=== PATIENT | female | born 1940 | race Asian ===

== ENCOUNTER → 2016-09-18 | Outpatient (CLI) | payer BC, MEDICARE, OTHER ==
[~2016-09-18] MED LIST: ACET-2267 PO; ASP81TEC PO; ASTA4CAP PO; BIOT5CAP9 PO; BUDE9TAB PO; CALC-210 PO; CIPR-225 PO; CLAR-19 PO; COCO1000 PO; CYCL1DRO OU; DILT180C84 PO; DIPH25CA79 PO; HYDR-3730 PO; HYDR200T PO; MELO15TA39 PO; MESA10002 RC; MESA500C PO; METO-333 PO; METO25TA2 PO; METR500T PO; MULT-1029 PO; MULT-35 PO; PANT40TA2 PO; PRD10T PO; TURM500C7 PO; UBID200C16 PO; VALS80TA30 PO; VITA1CAP PO; VITA1TAB17 PO
--- NOTE | 2016-09-18 11:42 | Diagnostic Imaging Report ---
EXAMINATION: DEXA scan. INDICATION: Osteopenia. TECHNIQUE: Bone mineral density estimated based on dual energy radiography over the lumbar spine and femoral necks, was performed. FINDINGS: The lumbar spine T-score is -1.2. T score over the left femoral neck is -2.1 and on the right side is -2. IMPRESSION: Osteopenia. Dictated by: Dictated on workstation # [id number]
== END ==
LOC: RAD 10:53
PROVIDERS: ATTEND Internal Medicine Gastroenterology
DX: M85.89 Other specified disorders of bone density and structure, multiple sites (principal); D64.9 Anemia, unspecified; R79.9 Abnormal finding of blood chemistry, unspecified; K51.919 Ulcerative colitis, unspecified with unspecified complications
CPT/HCPCS: 77080

== ENCOUNTER → 2020-08-24 | Outpatient (CLI) | payer MEDICARE, BC, OTHER ==
[~2020-08-24] MED LIST changes: -CLAR-19 PO; +CLAR-31 PO; -HYDR200T PO; +HYDR200T78 PO; -MESA10002 RC; +MESA10003 RC; -VALS80TA30 PO; +VALS80TA31 PO
--- NOTE | 2020-08-27 13:22 | Diagnostic Imaging Report ---
INDICATION: Routine screening. Comparison is made with prior mammogram 08/07/2011. 2-D and 3-D bilateral screening mammography was performed with CAD. Scattered fibroglandular densities are identified bilaterally. The parenchymal pattern is stable. No mass or malignant appearing microcalcifications are seen. Axillae are unremarkable. IMPRESSION: BI-RADS Category 1 No mammographic features suspicious for malignancy are identified. ACR BI-RADS Category 1: Negative. Result letter will be mailed to the patient. Note: At least 10% of breast cancer is not imaged by mammography. Dictated by: Dictated on workstation # [id number]
== END ==
LOC: RAD 14:45
PROVIDERS: ATTEND Family Medicine
DX: Z12.31 Encounter for screening mammogram for malignant neoplasm of breast (principal)
CPT/HCPCS: 77063; 77067

== ENCOUNTER → 2020-12-03 | Outpatient (CLI) | payer BC, MEDICARE, OTHER | LOC: CARD 09:06 | PROVIDERS: ATTEND Internal Medicine Cardiovascular Disease | DX: I08.3 Combined rheumatic disorders of mitral, aortic and tricuspid valves (principal) | CPT/HCPCS: 93306 ==

== ENCOUNTER 2021-12-22 11:12 | Emergency (ER) | payer BC, MEDICARE, OTHER ==
[~2021-12-22] VITALS: Ht 152.4 cm; Wt 52.1 kg
[2021-12-22] MEDS ORDERED: morphine INJ 10 MG/ML 1ML (SYR OR VIAL) IVP STA (12:53)
[2021-12-22] MEDS ORDERED: cefTRIAXone 2,000 MG in NS (IVPB) 50 ML IV ONE (13:00)
[2021-12-22] MEDS ORDERED: VANCOMYCIN INJECTION 1,000 MG in NS (IVPB) 250 ML IV ONE (13:00)
[2021-12-22 13:03] LABS: BASOPHILS % (AUTO) 0 % (0-10); EOSINOPHILS % (AUTO) 0 % (0-10); HEMATOCRIT 36 % (35-52); LYMPHOCYTES # (AUTO) 1.1 10^3/uL (1.0-4.0); LYMPHOCYTES % (AUTO) 22 % (12-44); MEAN CORPUSCULAR HEMOGLOBIN 30 pg (25-34); MEAN CORPUSCULAR HGB CONC 33 g/dL (32-36); MEAN CORPUSCULAR VOLUME 92 fL (80-99); MEAN PLATELET VOLUME 9.5 fL (9.0-12.2); MONOCYTES # (AUTO) 0.3 10^3/uL (0.0-1.0); MONOCYTES % (AUTO) 6 % (0-12); NEUTROPHILS # (AUTO) 3.7 10^3/uL (1.8-7.8); NEUTROPHILS % (AUTO) 71 % (42-75); PLATELET COUNT 167 10^3/uL (130-400); WHITE BLOOD COUNT 5.1 10^3/uL (4.3-11.0)
[2021-12-22 13:07] LABS: ALBUMIN 3.9 GM/DL (3.2-4.5); POTASSIUM 3.6 MMOL/L (3.6-5.0)
[2021-12-22 13:09] LABS: CALCIUM 8.4 MG/DL (8.5-10.1)
[2021-12-22 13:10] LABS: PROTHROMBIN TIME PATIENT 13.6 SEC (12.2-14.7); TOTAL PROTEIN 7.9 GM/DL (6.4-8.2)
[2021-12-22 13:11] LABS: BILIRUBIN,TOTAL 0.7 MG/DL (0.1-1.0)
[2021-12-22 13:12] LABS: BILIRUBIN,URINE NEGATIVE (NEGATIVE); CLARITY,URINE SL CLOUDY; COLOR,URINE YELLOW; GLUCOSE, URINE (UA) NEGATIVE (NEGATIVE); KETONES,URINE TRACE (NEGATIVE); LEUKOCYTE ESTERASE ,URINE TRACE (NEGATIVE); NITRITE,URINE NEGATIVE (NEGATIVE); PH,URINE 6.5 (5-9); PROTEIN,URINE TRACE (NEGATIVE)
[2021-12-22 13:13] LABS: CREATININE SERUM 0.84 MG/DL (0.60-1.30)
[2021-12-22 13:22] LABS: BACTERIA,URINE TRACE /HPF; RBC,URINE RARE /HPF
[2021-12-22] MEDS ORDERED: IOHEXOL 350 MG/ML 100 ML (OMNIPAQUE 350) VIAL IV ONE (13:30)
[2021-12-22] MEDS ORDERED: HOLD METFORMIN - RECEIVED CONTRAST 20 ML VIAL IV SCH (13:30)
[2021-12-22] MEDS ORDERED: CATHETER FLUSH 10 ML SYR IV PRN (13:30)
[2021-12-22] MEDS ORDERED: NS 100 ML (IVPB) BAG IV ONE (13:30)
--- NOTE | 2021-12-22 13:43 | ED EENT ---
History of Present Illness General Chief Complaint: Eye Problems Stated Complaint: LEFT SIDE OF FACE SWELLING - HEADACHE Nursing Triage Note: PT AMB TO [facility] WITH COMPLAINT OF LEFT EYE SWELLING AND PAIN. STATES THE SWELLING STARTED THIS WEEKEND. STATES THE EYE HAS BEEN DRAINING YELLOW LIQUID ALSO. STATES SHE HAS BEEN HAVING FEVERS AT HOME ALSO. HAD CATARCT SURGERY IN JUNE. History of Present Illness Date Seen by Provider: Dec 22, 2021 Time Seen by Provider: 12:25 Initial Comments Patient is a 81-year-old female who presents to the emergency department approximately 1 week of progressively worsening redness, irritation, and pain surrounding her left eye. She does have a history of cataract surgery that was performed on the affected eye and June of this year. The surgery was performed by an boom crane operator in [place]. She states she was seen 1 week ago at that office for further examination. They state they gave her "a lot of drops in my eyes" for the exam. She states she began having some redness and irritation around the left eye soon afterwards. She states she was wiping her eye with a tissue and caused a small scratch to her left upper eyelid. She states the swelling has continued to increase. She states she was febrile yesterday. She has not been taking any medication specifically for the symptoms. She states she has been applying a warm washcloth frequently. She denies any pain with movement of her eyes. She denies noticing the left eye protruding. Location: eye (L) Allergies and Home Medications Allergies Coded Allergies: Penicillins (Verified Allergy, Unknown, SWELLING, 11/02/15) mesalamine (Verified Adverse Reaction, Unknown, RASH, 11/02/15) Patient Home Medication List Home Medication List Reviewed: Yes Acetaminophen (Tylenol Extra Strength) 500 Mg Tablet, 1,000 MG PO Q6H PRN for PAIN, (Reported) Entered as Reported by: LESIA VELEZ on 11/02/15 1405 Biotin (Biotin) 5 Mg Capsule, 5 MG PO DAILY, (Reported) Entered as Reported by: LESIA VELEZ on 11/02/15 1415 Calcium/Magnesium/Zinc (Lgimtol-Xusdsfliu-Pgfu Tab) 1 Each Tablet, 1 TAB PO DAILY, (Reported) Entered as Reported by: LESIA VELEZ on 11/02/15 1415 Cefuroxime Axetil (Cefuroxime) 500 Mg Tablet, 500 MG PO BID Prescribed by: Job Lambert on 12/22/21 1442 Cyclosporine (Restasis) 1 Each Droperette, 1 DROP OU BID, (Reported) Entered as Reported by: LESIA EVLEZ on 11/02/15 1405 Diltiazem HCl (Diltiazem 24Hr Cd) 180 Mg Cap.er.24h, 180 MG PO DAILY Prescribed by: VALERIA GOODEN on 11/03/15 0832 Diphenhydramine HCl (Benadryl) 25 Mg Capsule, 25 MG PO HS PRN for ALLERGIES, (Reported) Entered as Reported by: LESIA VELEZ on 11/02/15 140 Mesalamine (Canasa) 1,000 Mg Supp.rect, 1,000 MG RC HS, (Reported) Entered as Reported by: LESIA VELEZ on 11/02/15 1405 Multivit-Min/FA/Lycopene/Lut (Centrum Silver Tablet) 1 Each Tablet, 1 TAB PO DAILY, (Reported) Entered as Reported by: LESIA VELEZ on 11/02/15 141 Vitamin B Complex (Vitamin B Complex) 1 Each Capsule, 1 CAP PO DAILY, (Reported) Entered as Reported by: LESIA VELEZ on 11/02/15 1415 Review of Systems Review of Systems Constitutional: see HPI Eyes: Inflammation, Pain Ears: No Symptoms Reported Nose: no symptoms reported Mouth: no symptoms reported Throat: no symptoms reported Respiratory: no symptoms reported Cardiovascular: no symptoms reported Gastrointestinal: no symptoms reported Musculoskeletal: no symptoms reported Skin: see HPI Past Oifanbp-Rbmlry-Huhyao Hx Patient Social History Tobacco Use?: No Use of E-Cig and/or Vaping dev: No Substance use?: No Alcohol Use?: No Pt feels they are or have been: No Immunizations Up To Date Tetanus Booster (TDap): More than 5yrs PED Vaccines UTD: No Seasonal Allergies Seasonal Allergies: No Past Medical History Gallbladder Currently Using CPAP: No Currently Using BIPAP: No Hypertension Reproductive Disorders: No Female Reproductive Disorders: Denies 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 1.0oz. 48.362269rp; 22.00 BMI Method:Stated General Appearance: WD/WN, no apparent distress Eyes: left eye PERRL, left eye EOMI, left eye lid inflammation, left eye lid injury Neck: non-tender, full range of motion, supple, normal inspection Cardiovascular: regular rate, rhythm Respiratory: chest non-tender, lungs clear, normal breath sounds Gastrointestinal: normal bowel sounds, non tender, soft Neurologic/Psychiatric: call center associate II-XII nml as tested, no motor/sensory deficits, alert, normal mood/affect, oriented x 3 Skin: normal color, warm/dry Mild erythema noted to the left upper eyelid; superficial abrasion also noted to the left upper eyelid; there is a moderate amount of swelling to the left periorbital tissues; no proptosis noted in the left eye; extraocular movements are intact without provocation of pain Progress/Results/Core Measures Results/Orders Lab Results Laboratory Tests Test 12/22/21 12:30 12/22/21 13:06 Range/Units White Blood Count 5.1 4.3-11.0 10^3/uL Red Blood Count 3.96 3.80-5.11 10^6/uL Hemoglobin 12.0 11.5-16.0 g/dL Hematocrit 36 35-52 % Mean Corpuscular Volume 92 80-99 fL Mean Corpuscular Hemoglobin 30 25-34 pg Mean Corpuscular Hemoglobin Concent 33 32-36 g/dL Red Cell Distribution Width 14.5 10.0-14.5 % Platelet Count 167 130-400 10^3/uL Mean Platelet Volume 9.5 9.0-12.2 fL Immature Granulocyte % (Auto) 0 % Neutrophils (%) (Auto) 71 42-75 % Lymphocytes (%) (Auto) 22 12-44 % Monocytes (%) (Auto) 6 0-12 % Eosinophils (%) (Auto) 0 0-10 % Basophils (%) (Auto) 0 0-10 % Neutrophils # (Auto) 3.7 1.8-7.8 10^3/uL Lymphocytes # (Auto) 1.1 1.0-4.0 10^3/uL Monocytes # (Auto) 0.3 0.0-1.0 10^3/uL Eosinophils # (Auto) 0.0 0.0-0.3 10^3/uL Basophils # (Auto) 0.0 0.0-0.1 10^3/uL Immature Granulocyte # (Auto) 0.0 0.0-0.1 10^3/uL Prothrombin Time 13.6 12.2-14.7 SEC INR Comment 1.0 0.8-1.4 Activated Partial Thromboplast Time 33 24-35 SEC Sodium Level 135 135-145 MMOL/L Potassium Level 3.6 3.6-5.0 MMOL/L Chloride Level 102 98-107 MMOL/L Carbon Dioxide Level 23 21-32 MMOL/L Anion Gap 10 5-14 MMOL/L Blood Urea Nitrogen 11 7-18 MG/DL Creatinine 0.84 0.60-1.30 MG/DL Estimat Glomerular Filtration Rate 69 BUN/Creatinine Ratio 13 Glucose Level 111 H 70-105 MG/DL Lactic Acid Level 0.90 0.50-2.00 MMOL/L Calcium Level 8.4 L 8.5-10.1 MG/DL Corrected Calcium 8.5 8.5-10.1 MG/DL Total Bilirubin 0.7 0.1-1.0 MG/DL Aspartate Amino Transf (AST/SGOT) 18 5-34 U/L Alanine Aminotransferase (ALT/SGPT) 11 0-55 U/L Alkaline Phosphatase 56 40-136 U/L Total Protein 7.9 6.4-8.2 GM/DL Albumin 3.9 3.2-4.5 GM/DL Urine Color YELLOW Urine Clarity SL CLOUDY Urine pH 6.5 5-9 Urine Specific [place] 1.020 1.016-1.022 Urine Protein TRACE H NEGATIVE Urine Glucose (UA) NEGATIVE NEGATIVE Urine Ketones TRACE H NEGATIVE Urine Nitrite NEGATIVE NEGATIVE Urine Bilirubin NEGATIVE NEGATIVE Urine Urobilinogen 0.2 < = 1.0 MG/DL Urine Leukocyte Esterase TRACE H NEGATIVE Urine RBC (Auto) NEGATIVE NEGATIVE Urine RBC RARE /HPF Urine WBC 2-5 /HPF Urine Squamous Epithelial Cells 2-5 /HPF Urine Crystals NONE /LPF Urine Bacteria TRACE /HPF Urine Casts NONE /LPF Urine Mucus SMALL H /LPF Urine Culture Indicated CULTURE PENDING My Orders Orders - JOB LAMBERT TRACK HELPER Cbc With Automated Diff (12/22/21 12:53) Comprehensive Metabolic Panel (12/22/21 12:53) Blood Culture (12/22/21 12:53) Sputum Culture (12/22/21 12:53) Urinalysis (12/22/21 12:53) Urine Culture (12/22/21 12:53) Protime With Inr (12/22/21 12:53) Partial Thromboplastin Time (12/22/21 12:53) Chest 1 View, Ap/Pa Only (12/22/21 12:53) Ed Iv/Invasive Line Start (12/22/21 12:53) Vital Signs Adult Sepsis Patie Q15M (12/22/21 12:53) O2 (12/22/21 12:53) Remove Rings In Anticipation O (12/22/21 12:53) Lactic Acid Analyzer (12/22/21 12:53) Vancomycin Injection (Vancomycin Injecti (12/22/21 13:00) Ceftriaxone (Rocephin) (12/22/21 13:00) Ct Head Wo (12/22/21 12:53) Ct Orbit/Sella/Iac W (12/22/21 12:53) Morphine Injection (Morphine Injection (12/22/21 12:53) Iohexol Injection (Omnipaque 350 Mg/Ml 1 (12/22/21 13:30) Received Contrast (Hold Metformin- Contr (12/22/21 13:30) Ns (Ivpb) (Sodium Chloride 0.9% Ivpb Bag (12/22/21 13:30) Sodium Chloride Flush (Catheter Flush Sy (12/22/21 13:30) Medications Given in ED Current Medications Medications Dose Ordered Sig/Castro Route Start Time Stop Time Status Last Admin Dose Admin Ceftriaxone Sodium 2000 mg/ Sodium Chloride 50 ml @ 100 mls/hr ONCE ONCE IV 12/22/21 13:00 12/22/21 13:29 DC 12/22/21 13:21 100 MLS/HR Iohexol 75 ml ONCE ONCE IV 12/22/21 13:30 12/22/21 13:31 DC 12/22/21 14:00 75 ML Sodium Chloride 100 ml ONCE ONCE IV 12/22/21 13:30 12/22/21 13:31 DC 12/22/21 14:00 100 ML Vancomycin HCl 1000 mg/Sodium Chloride 250 ml @ 250 mls/hr ONCE ONCE IV 12/22/21 13:00 12/22/21 13:59 DC 12/22/21 14:10 250 MLS/HR Vital Signs/I&O 12/22/21 12:22 Temp 38.4 Pulse 93 Resp 16 B/P (MAP) 139/81 (100) Pulse Ox 98 O2 Delivery Room Air Blood Pressure Mean: 100 Progress Progress Note : Progress Note Patient is nontoxic and well-hydrated on exam. Aside from the eye issues, she also is complaining of intermittent headache that she describes as "an electric jolt". She states this headache began around the time the eye symptoms started. No immediately apparent signs of significant orbital cellulitis on physical exam. However, given duration of symptomology will obtain contrasted CT of the orbits. We will also obtain a noncontrasted head CT given patient's new onset of headaches. Laboratory evaluation will shall be obtained. Patient has reassuring vital signs but is febrile upon arrival. Laboratory evaluation is largely unremarkable without leukocytosis. Lactic acid is not elevated. Metabolic panel unremarkable. Chest x-ray is acutely negative. CT of the head is negative other than the periorbital tissue swelling noted around the left eye. Orbital CT notable for the same left periorbital swelling but all of the swollen tissues appear to be preseptal. Due to this, patient being nontoxic, and lack of proptosis/pain with extraocular movements on exam, we will attempt outpatient antibiotics with close follow-up with her boom crane operator. Patient was given a dose of vancomycin and Rocephin in the emergency department in the event that orbital cellulitis was noted on the CT. She was also given a small dose of analgesia at her request. Will discharge home with supportive care and recommendations for close follow-up with boom crane operator. Return precautions for urgent symptomology discussed. Patient and verbalized understanding. Departure Impression Primary Impression: Preseptal cellulitis of left eye Disposition: 01 HOME, SELF-CARE Condition: Stable Departure-Patient Inst. Decision time for Depature: 14:40 Referrals: BRITTNEE MCGHEE OD, DANIEL J MD (PCP/Family) Primary Care Physician Patient Instructions: Preseptal Cellulitis ED Scripts Cefuroxime Axetil (Cefuroxime) 500 Mg Tablet 500 MG PO BID for 7 Days, #14 TAB 0 Refills Prov: JOB LAMBERT APRN 12/22/21 JOB LAMBERT APRN Dec 22, 2021 13:43
--- NOTE | 2021-12-22 14:15 | Diagnostic Imaging Report ---
PROCEDURE: CT head without contrast. TECHNIQUE: Multiple contiguous axial images were obtained through the brain without the use of intravenous contrast. Auto Exposure Controls were utilized during the CT exam to meet ALARA standards for radiation dose reduction. INDICATION: Left eye swelling and pain. COMPARISON: No prior studies are available for comparison. There is some left periorbital soft tissue swelling present. Both globes are unremarkable. No retro-orbital fluid collection or mass is detected. The ventricles and sulci are appropriate for the patient's age. Periventricular white matter changes are noted consistent with chronic microvascular ischemia. There is no midline shift. No acute intra-axial or extra-axial hemorrhage is detected. Cisterns are patent. Visualized paranasal sinuses are clear. IMPRESSION: Left periorbital soft tissue swelling. No acute intracranial process is detected. Dictated by: Dictated on workstation # [id number]
--- NOTE | 2021-12-22 14:17 | Diagnostic Imaging Report ---
Indication: Sepsis. Time of Exam: 2:12 PM Correlation is made with prior study 11/03/2015. Findings: The heart size is normal. The pulmonary vascularity is unremarkable. The lungs are clear. No infiltrate, effusion or pneumothorax is detected. Impression: No acute cardiopulmonary process is detected. Dictated by: Dictated on workstation # [id number]
--- NOTE | 2021-12-22 14:26 | Diagnostic Imaging Report ---
INDICATION: Left eye swelling and pain. TECHNIQUE: Axial imaging through the orbits was performed after the administration of intravenous contrast. Sagittal and coronal reformations were also performed. All CT scans use one or more of the following dose optimizing techniques: automated exposure control, MA and/or KvP adjustment based on patient size and exam type or iterative reconstruction. FINDINGS: There is some soft tissue swelling in the left periorbital preseptal tissues. No postseptal swelling is seen. The intraconal and extraconal fat is maintained without evidence of infiltration, fluid collection or mass. Both globes are unremarkable. The extraocular muscles appear to be symmetric bilaterally. No fluid collection is seen. Visualized paranasal sinuses are clear. IMPRESSION: Left periorbital preseptal soft tissue swelling, perhaps owing to periorbital cellulitis. No fluid collection is seen. The study is otherwise unremarkable. Dictated by: Dictated on workstation # [id number]
[2021-12-22] MEDS ORDERED: CEFU500T63 PO (14:42)
[2021-12-22 15:23] VITALS: BP 129/89
== END 2021-12-22 15:24 | disposition home or self-care (01) ==
LOC: EDUNIT# 11:12 → ER 11:13
DX: H00.036 Abscess of eyelid left eye, unspecified eyelid (principal)
CPT/HCPCS: 36415; 70450; 70481; 71045; 80053; 81000; 83605; 85025; 85610; 85730; 87040; 87088

== ENCOUNTER 2021-12-24 08:35 | Emergency (ER) | payer BC, MEDICARE, OTHER ==
[~2021-12-24] VITALS: Ht 152.4 cm; Wt 49.8 kg
[~2021-12-24 08:35] MED LIST changes: +CEFU500T63 PO
[2021-12-24] MEDS ORDERED: VALACYCLOVIR 500 MG TAB (VALTREX) PO STA (09:13)
[2021-12-24] MEDS ORDERED: FLUORESCEIN (FLUOR-I-STRIPS) 1 MG STRP OP ONE (09:15)
[2021-12-24] MEDS ORDERED: TETRACAINE 0.5% OPHTH SOLN 4 ML BTL (SINGLE DOSE ONLY) OP ONE (09:15)
--- NOTE | 2021-12-24 09:19 | ED EENT ---
History of Present Illness General Chief Complaint: Eye Problems Stated Complaint: EYE INFECTION Source: patient Exam Limitations: no limitations History of Present Illness Date Seen by Provider: Dec 24, 2021 Time Seen by Provider: 08:40 Initial Comments 81-year-old female coming in due to concerns for infection on the left side of her face. Was seen here on Thursday, did not look as bad at that time, was started on antibiotics. Overnight started blistering, her left eye started swelling shot, and now she is having difficulty seeing. She is never had anything like this happen before. He does endorse having chickenpox before in her life. Denies any fever, chest pain, shortness of breath, abdominal pain, nausea, vomiting, diarrhea, weakness, numbness, or any other concerns Allergies and Home Medications Allergies Coded Allergies: Penicillins (Verified Allergy, Unknown, SWELLING, 11/02/15) mesalamine (Verified Adverse Reaction, Unknown, RASH, 11/02/15) Patient Home Medication List Home Medication List Reviewed: Yes Acetaminophen (Tylenol Extra Strength) 500 Mg Tablet, 1,000 MG PO Q6H PRN for PA IN, (Reported) Entered as Reported by: LESIA VELEZ on 11/02/15 1405 Biotin (Biotin) 5 Mg Capsule, 5 MG PO DAILY, (Reported) Entered as Reported by: LESIA VELEZ on 11/02/15 1415 Calcium/Magnesium/Zinc (Cxhrnlh-Lgycgmsnf-Tiqy Tab) 1 Each Tablet, 1 TAB PO DAILY, (Reported) Entered as Reported by: LESIA VELEZ on 11/02/15 1415 Cefuroxime Axetil (Cefuroxime) 500 Mg Tablet, 500 MG PO BID Prescribed by: Job Lambert on 12/22/21 1442 Cyclosporine (Restasis) 1 Each Droperette, 1 DROP OU BID, (Reported) Entered as Reported by: LESIA VELEZ on 11/02/15 1405 Diltiazem HCl (Diltiazem 24Hr Cd) 180 Mg Cap.er.24h, 180 MG PO DAILY Prescribed by: VALERIA GOODEN on 11/03/15 0832 Diphenhydramine HCl (Benadryl) 25 Mg Capsule, 25 MG PO HS PRN for ALLERGIES, (Reported) Entered as Reported by: LESIA VELEZ on 11/02/15 1405 Mesalamine (Canasa) 1,000 Mg Supp.rect, 1,000 MG RC HS, (Reported) Entered as Reported by: LESIA VELEZ on 11/02/15 1405 Multivit-Min/FA/Lycopene/Lut (Centrum Silver Tablet) 1 Each Tablet, 1 TAB PO DAILY, (Reported) Entered as Reported by: LESIA VELEZ on 11/02/15 1415 Vitamin B Complex (Vitamin B Complex) 1 Each Capsule, 1 CAP PO DAILY, (Reported) Entered as Reported by: LESIA VELEZ on 11/02/15 1415 Review of Systems Review of Systems Constitutional: No fever Eyes: Blurred Vision Ears: No Symptoms Reported Nose: no symptoms reported Mouth: no symptoms reported Throat: no symptoms reported Respiratory: no symptoms reported Cardiovascular: no symptoms reported Gastrointestinal: no symptoms reported Musculoskeletal: no symptoms reported Skin: see HPI Neurological: No Symptoms Reported Hematologic/Lymphatic: No Symptoms Reported Immunological/Allergic: no symptoms reported All Other Systems Reviewed Negative Unless Noted: Yes Past Bldwxja-Eaolej-Rgpxmu Hx Patient Social History Tobacco Use?: No Use of E-Cig and/or Vaping dev: No Substance use?: No Alcohol Use?: No Pt feels they are or have been: No Immunizations Up To Date Tetanus Booster (TDap): More than 5yrs PED Vaccines UTD: No Influenza Vaccine Up-to-Date: No; Not Current Seasonal Allergies Seasonal Allergies: No Past Medical History Surgery/Hospitalization HX: HTN Surgeries: Yes Gallbladder Currently Using CPAP: No Currently Using BIPAP: No Hypertension Reproductive Disorders: No Female Reproductive Disorders: 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 1.0oz. 48.013714gm; 22.00 BMI Method:Stated General Appearance: WD/WN, no apparent distress Eyes: left eye other (Left eye swollen and shut); bilateral eye normal inspection, bilateral eye PERRL, bilateral eye EOMI Ears: bilateral ear auricle normal, bilateral ear canal normal, bilateral ear TM normal Nose: normal inspection Mouth/Throat: normal mouth inspection, pharynx normal Neck: non-tender, full range of motion, supple, normal inspection Cardiovascular: regular rate, rhythm, no edema, no murmur Respiratory: chest non-tender, lungs clear, normal breath sounds, no respiratory distress, no accessory muscle use Gastrointestinal: normal bowel sounds, non tender, soft; No distended, No guarding, No rebound Neurologic/Psychiatric: rater associate II-XII nml as tested, no motor/sensory deficits, alert, normal mood/affect, oriented x 3 Skin: normal color, warm/dry, other (Blistering rash to the V1 dermatome on the face on the left, no involvement with the ear or nose) Progress/Results/Core Measures Results/Orders Lab Results Laboratory Tests Test 12/24/21 09:22 Range/Units White Blood Count 5.4 4.3-11.0 10^3/uL Red Blood Count 4.01 3.80-5.11 10^6/uL Hemoglobin 11.9 11.5-16.0 g/dL Hematocrit 36 35-52 % Mean Corpuscular Volume 91 80-99 fL Mean Corpuscular Hemoglobin 30 25-34 pg Mean Corpuscular Hemoglobin Concent 33 32-36 g/dL Red Cell Distribution Width 14.1 10.0-14.5 % Platelet Count 166 130-400 10^3/uL Mean Platelet Volume 9.6 9.0-12.2 fL Immature Granulocyte % (Auto) 0 % Neutrophils (%) (Auto) 68 42-75 % Lymphocytes (%) (Auto) 23 12-44 % Monocytes (%) (Auto) 8 0-12 % Eosinophils (%) (Auto) 1 0-10 % Basophils (%) (Auto) 0 0-10 % Neutrophils # (Auto) 3.7 1.8-7.8 10^3/uL Lymphocytes # (Auto) 1.3 1.0-4.0 10^3/uL Monocytes # (Auto) 0.4 0.0-1.0 10^3/uL Eosinophils # (Auto) 0.0 0.0-0.3 10^3/uL Basophils # (Auto) 0.0 0.0-0.1 10^3/uL Immature Granulocyte # (Auto) 0.0 0.0-0.1 10^3/uL Sodium Level 134 L 135-145 MMOL/L Potassium Level 3.4 L 3.6-5.0 MMOL/L Chloride Level 100 98-107 MMOL/L Carbon Dioxide Level 24 21-32 MMOL/L Anion Gap 10 5-14 MMOL/L Blood Urea Nitrogen 18 7-18 MG/DL Creatinine 0.78 0.60-1.30 MG/DL Estimat Glomerular Filtration Rate 76 BUN/Creatinine Ratio 23 Glucose Level 130 H 70-105 MG/DL Calcium Level 8.7 8.5-10.1 MG/DL Corrected Calcium 8.9 8.5-10.1 MG/DL Total Bilirubin 0.6 0.1-1.0 MG/DL Aspartate Amino Transf (AST/SGOT) 18 5-34 U/L Alanine Aminotransferase (ALT/SGPT) 11 0-55 U/L Alkaline Phosphatase 52 40-136 U/L Total Protein 7.6 6.4-8.2 GM/DL Albumin 3.7 3.2-4.5 GM/DL My Orders Orders - KRISH COFFEY MD Cbc With Automated Diff (12/24/21 09:13) Comprehensive Metabolic Panel (12/24/21 09:13) Valacyclovir Tablet (Valtrex Tablet) (12/24/21 09:13) Tetracaine 0.5% Ophth Molly Sdv (Tetracai (12/24/21 09:15) Fluorescein Strips (Ywpua-X-Uqeyfw) (12/24/21 09:15) Medications Given in ED Current Medications Medications Dose Ordered Sig/Castro Route Start Time Stop Time Status Last Admin Dose Admin Fluorescein Sodium ONCE ONCE OP 12/24/21 09:15 12/24/21 09:17 DC 12/24/21 09:53 1 MG Tetracaine HCl 1 OR 2 DROPS INTO AFFEC... ONCE ONCE OP 12/24/21 09:15 12/24/21 09:17 DC 12/24/21 09:53 4 ML Vital Signs/I&O 12/24/21 09:07 Temp 36.2 Pulse 87 Resp 16 B/P (MAP) 142/97 (112) Progress Progress Note : Progress Note 81-year-old female with above history coming in due to rash on her face. ABCs w ere intact and vitals were stable on presentation. Physical exam consistent with herpes zoster in the V1 distribution. There is no involvement of her tympanic membrane, or her nose. I did a fluorescein exam of her left eye, and there is no signs of infection/herpes zoster ophthalmicus. We will start the patient on antivirals, will have her follow-up with optometry just in case, and for closer exam. We will also have her follow-up with her PCP. I believe she stable for discharge with outpatient follow-up. She was sent home with strict return precautions Departure Impression Primary Impression: Shingles Qualified Codes: B02.8 - Zoster with other complications Disposition: HOME, SELF-CARE Condition: Stable Departure-Patient Inst. Decision time for Depature: 10:23 Referrals: VALERIA GOODEN MD (PCP/Family) Primary Care Physician Patient Instructions: Shingles Add. Discharge Instructions: You do have shingles on the left side of your forehead. It does not appear like it in your eye itself at this time. I want you to follow-up with an counseling program leader, either Dr. Luke or Dr. Turner here in town within the next couple days if able. I want you to follow-up with your regular doctor within the next week to be sure things are improving. Finish your antibiotics as well. Pain medicines were sent to your pharmacy, you can also take ibuprofen on top of that if you are having severe pain. Scripts Hydrocodone Bit/Acetaminophen (HYDROcodone/APAP 5 MG/325 MG TAB) 1 Tab Tab 1 TAB PO Q6H for Pain for 3 Days, #12 TAB 0 Refills Prov: KRISH COFFEY MD 12/24/21 Valacyclovir HCl (Valacyclovir) 1,000 Mg Tablet 1000 MG PO Q8H for 10 Days, #30 TAB Prov: KRISH COFFEY MD 12/24/21 KRISH COFFEY MD Dec 24, 2021 09:19
[2021-12-24 09:28] LABS: BASOPHILS % (AUTO) 0 % (0-10); EOSINOPHILS % (AUTO) 1 % (0-10); HEMATOCRIT 36 % (35-52); HEMOGLOBIN 11.9 g/dL (11.5-16.0); LYMPHOCYTES # (AUTO) 1.3 10^3/uL (1.0-4.0); LYMPHOCYTES % (AUTO) 23 % (12-44); MEAN CORPUSCULAR HEMOGLOBIN 30 pg (25-34); MEAN CORPUSCULAR HGB CONC 33 g/dL (32-36); MEAN CORPUSCULAR VOLUME 91 fL (80-99); MEAN PLATELET VOLUME 9.6 fL (9.0-12.2); MONOCYTES # (AUTO) 0.4 10^3/uL (0.0-1.0); MONOCYTES % (AUTO) 8 % (0-12); NEUTROPHILS # (AUTO) 3.7 10^3/uL (1.8-7.8); NEUTROPHILS % (AUTO) 68 % (42-75); PLATELET COUNT 166 10^3/uL (130-400); WHITE BLOOD COUNT 5.4 10^3/uL (4.3-11.0)
[2021-12-24 09:56] LABS: ALBUMIN 3.7 GM/DL (3.2-4.5); POTASSIUM 3.4 MMOL/L (3.6-5.0)
[2021-12-24 09:57] LABS: CALCIUM 8.7 MG/DL (8.5-10.1)
[2021-12-24 09:58] LABS: TOTAL PROTEIN 7.6 GM/DL (6.4-8.2)
[2021-12-24 10:00] LABS: BILIRUBIN,TOTAL 0.6 MG/DL (0.1-1.0)
[2021-12-24 10:02] LABS: CREATININE SERUM 0.78 MG/DL (0.60-1.30)
[2021-12-24] MEDS ORDERED: VALA10007 PO (10:25)
[2021-12-24] MEDS ORDERED: ACHD5005 PO (10:25)
[2021-12-24 10:34] VITALS: BP 146/93
== END 2021-12-24 10:35 | disposition home or self-care (01) ==
LOC: EDUNIT# 08:35 → ER 08:36
DX: B02.9 Zoster without complications (principal)
CPT/HCPCS: 36415; 80053; 85025; 99283

== ENCOUNTER 2021-12-26 09:42 | Inpatient (IN) | payer BC, MEDICARE, OTHER ==
[~2021-12-26] VITALS: Ht 152.4 cm; Wt 49.8 kg
[~2021-12-26 09:42] MED LIST changes: +ACHD5005 PO; +VALA10007 PO
[2021-12-26] MEDS ORDERED: ONDANSETRON 4 MG/2 ML (SDV) Z0FRAN IVP ONE (10:00)
[2021-12-26] MEDS ORDERED: LACTATED RINGERS 1,000 ML IV SCH (10:00)
--- NOTE | 2021-12-26 10:06 | ED General ---
General Chief Complaint: General Problems/Pain Stated Complaint: WEAKNESS FROM SHINGLES Nursing Triage Note: last weakness started, increasingly weak since illness began. was diagnosed with shingles. two trips to the ed last resulting in scripts for pain adn acyclovir. Source of Information: Patient, Family (son) Exam Limitations: No Limitations History of Present Illness Date Seen by Provider: Dec 26, 2021 Time Seen by Provider: 09:50 Initial Comments Patient is an 81-year-old female history of hypertension and ulcerative colitis who presents to the emergency room with a chief complaint of severe nausea and generalized weakness. She had onset of shingles approximately 1 week ago, started on valacyclovir 2 days ago. Area of shingles is left upper face. She had follow-up with the glass engraver yesterday, no ocular involvement was noted. She denies abdominal pain but is very dizzy with standing. Very nauseous. No diarrhea. No black or bloody stools. No problems with urination, dysuria or frequency. Her rash is healing. She has not really had much to eat or drink due to the nausea over the last 2 days. Never had anything quite like this before. She complains of a quite dry mouth. No upper respiratory tract symptoms. No shortness of breath, cough, runny nose or congestion. She does present with her All other review of systems reviewed and negative except as stated Timing/Duration: 1 Week Severity: Moderate Allergies and Home Medications Allergies Coded Allergies: Penicillins (Verified Allergy, Unknown, SWELLING, 12/26/21) mesalamine (Verified Adverse Reaction, Unknown, RASH, 12/26/21) Patient Home Medication List Home Medication List Reviewed: Yes Amlodipine Besylate (Amlodipine Besylate) 10 Mg Tablet, 10 MG PO DAILY, (Reported) Entered as Reported by: ALEJANDRA OSCAR on 12/26/211537 Last Action: Reviewed Aspirin (Aspirin EC) 81 Mg Tablet.dr, 81 MG PO DAILY, (Reported) Entered as Reported by: ALEJANDRA OSCAR on 12/26/211537 Last Action: Reviewed Cefuroxime Axetil (Cefuroxime) 250 Mg Tablet, 500 MG PO BID, (Reported) Entered as Reported by: ALEJANDRA OSCAR on 12/26/211537 Last Action: Reviewed Hydrocodone/Acetaminophen (Hydrocodone-Acetamin 5-325 mg) 5 Mg-325 Mg Tablet, 1 EA PO Q6H PRN for PAIN-MODERATE (5-7), (Reported) Entered as Reported by: ALEJANDRA OSCAR on 12/26/211537 Last Action: Reviewed Loteprednol Etabonate (Loteprednol Etabonate) 0.5 % Drops.susp, 1 DROP OP QID, (Reported) Entered as Reported by: ALEJANDRA OSCAR on 12/26/211537 Last Action: Reviewed Valacyclovir HCl (Valacyclovir) 1,000 Mg Tablet, 1,000 MG PO Q8H, (Reported) Entered as Reported by: ALEJANDRA OSCAR on 12/26/211537 Last Action: Reviewed Discontinued Medications Acetaminophen (Tylenol Extra Strength) 500 Mg Tablet, 1,000 MG PO Q6H PRN for PAIN, (Reported) Discontinued Reason: No Longer Taking Entered as Reported by: LESIA VELEZ on 11/02/151404 Last Action: Discontinued Biotin (Biotin) 5 Mg Capsule, 5 MG PO DAILY, (Reported) Discontinued Reason: No Longer Taking Entered as Reported by: LESIA VELEZ on 11/02/151414 Last Action: Discontinued Calcium/Magnesium/Zinc (Phoxhtk-Vejrznxeb-Tmmo Tab) 1 Each Tablet, 1 TAB PO HANSEL Y, (Reported) Discontinued Reason: No Longer Taking Entered as Reported by: LESIA VELEZ on 11/02/151414 Last Action: Discontinued Cefuroxime Axetil (Cefuroxime) 500 Mg Tablet, 500 MG PO BID Discontinued Reason: No Longer Taking Prescribed by: Job Lambert on 12/22/21 1442 Last Action: Discontinued Cyclosporine (Restasis) 1 Each Droperette, 1 DROP OU BID, (Reported) Discontinued Reason: No Longer Taking Entered as Reported by: LESIA VELEZ on 11/02/151404 Last Action: Discontinued Diltiazem HCl (Diltiazem 24Hr Cd) 180 Mg Cap.er.24h, 180 MG PO DAILY Discontinued Reason: No Longer Taking Prescribed by: VALERIA GOODEN on 11/03/15 0832 Last Action: Discontinued Diphenhydramine HCl (Benadryl) 25 Mg Capsule, 25 MG PO HS PRN for ALLERGIES, (Reported) Discontinued Reason: No Longer Taking Entered as Reported by: LESIA VELEZ on 11/02/151404 Last Action: Discontinued Hydrocodone Bit/Acetaminophen (HYDROcodone/APAP 5 MG/325 MG TAB) 1 Tab Tab, 1 TAB PO Q6H Discontinued Reason: No Longer Taking Prescribed by: KRISH COFFEY on 12/24/21 1025 Last Action: Discontinued Mesalamine (Canasa) 1,000 Mg Supp.rect, 1,000 MG RC HS, (Reported) Discontinued Reason: No Longer Taking Entered as Reported by: LESIA VELEZ on 11/02/151404 Last Action: Discontinued Multivit-Min/FA/Lycopene/Lut (Centrum Silver Tablet) 1 Each Tablet, 1 TAB PO DAILY, (Reported) Discontinued Reason: No Longer Taking Entered as Reported by: LESIA VELEZ on 11/02/151414 Last Action: Discontinued Valacyclovir HCl (Valacyclovir) 1,000 Mg Tablet, 1,000 MG PO Q8H Discontinued Reason: No Longer Taking Prescribed by: KRISH COFFEY on 12/24/21 102 Last Action: Discontinued Vitamin B Complex (Vitamin B Complex) 1 Each Capsule, 1 CAP PO DAILY, (Reported) Discontinued Reason: No Longer Taking Entered as Reported by: LESIA VELEZ on 11/02/151414 Last Action: Discontinued Review of Systems Review of Systems Constitutional: see HPI, malaise, weakness EENTM: no symptoms reported Respiratory: no symptoms reported Cardiovascular: palpitations Gastrointestinal: nausea Genitourinary: decreased output : No Musculoskeletal: no symptoms reported Skin: no symptoms reported Psychiatric/Neurological: Weakness (generalized) All Other Systems Reviewed Negative Unless Noted: Yes Past Flqqlaf-Hqfkaz-Tpbify Hx Immunizations Up To Date Tetanus Booster (TDap): More than 5yrs PED Vaccines UTD: No Seasonal Allergies Seasonal Allergies: No Past Medical History Surgery/Hospitalization HX: HTN Surgeries: Yes Gallbladder Currently Using CPAP: No Currently Using BIPAP: No Hypertension Reproductive Disorders: No Female Reproductive Disorders: Denies [employer]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 1.0oz. [id number]; 21.00 BMI Method:Stated General Appearance: WD/WN, Anxious Eyes: Bilateral Eye PERRL, Bilateral Eye EOMI HEENT: PERRL/EOMI, Other (very dry oral mucosa) Neck: Normal Inspection Respiratory: Lungs Clear, Normal Breath Sounds, No Accessory Muscle Use, No Respiratory Distress Cardiovascular: Regular Rate, Rhythm, Normal Peripheral Pulses Gastrointestinal: Soft, Tenderness (diffuse mild tenderness; normal BS) Extremity: Normal Inspection, Normal Range of Motion Neurologic/Psychiatric: Alert, Oriented x3, No Motor/Sensory Deficits, Normal Mood/Affect Skin: Normal Color, Warm/Dry, Other (healing varicelliform rash in the V1 distribution of the right face; poor skin turgor) Progress/Results/Core Measures Suspected Sepsis SIRS Temperature: Pulse: 85 Respiratory Rate: 20 Laboratory Tests 12/26/21 10:02: White Blood Count 7.5 Blood Pressure 127 /89 Mean: 102 Laboratory Tests 12/26/21 10:02: Creatinine 3.67#H, Platelet Count 197 Results/Orders Lab Results Laboratory Tests Test 12/26/21 10:02 Range/Units White Blood Count 7.5 4.3-11.0 10^3/uL Red Blood Count 3.89 3.80-5.11 10^6/uL Hemoglobin 11.7 11.5-16.0 g/dL Hematocrit 34 L 35-52 % Mean Corpuscular Volume 88 80-99 fL Mean Corpuscular Hemoglobin 30 25-34 pg Mean Corpuscular Hemoglobin Concent 34 32-36 g/dL Red Cell Distribution Width 13.8 10.0-14.5 % Platelet Count 197 130-400 10^3/uL Mean Platelet Volume 10.2 9.0-12.2 fL Immature Granulocyte % (Auto) 0 % Neutrophils (%) (Auto) 73 42-75 % Lymphocytes (%) (Auto) 20 12-44 % Monocytes (%) (Auto) 5 0-12 % Eosinophils (%) (Auto) 0 0-10 % Basophils (%) (Auto) 0 0-10 % Neutrophils # (Auto) 5.5 1.8-7.8 10^3/uL Lymphocytes # (Auto) 1.5 1.0-4.0 10^3/uL Monocytes # (Auto) 0.4 0.0-1.0 10^3/uL Eosinophils # (Auto) 0.0 0.0-0.3 10^3/uL Basophils # (Auto) 0.0 0.0-0.1 10^3/uL Immature Granulocyte # (Auto) 0.0 0.0-0.1 10^3/uL Sodium Level 133 L 135-145 MMOL/L Potassium Level 3.1 L 3.6-5.0 MMOL/L Chloride Level 99 98-107 MMOL/L Carbon Dioxide Level 20 L 21-32 MMOL/L Anion Gap 14 5-14 MMOL/L Blood Urea Nitrogen 46 H 7-18 MG/DL Creatinine 3.67 #H 0.60-1.30 MG/DL Estimat Glomerular Filtration Rate 12 BUN/Creatinine Ratio 13 Glucose Level 129 H 70-105 MG/DL Calcium Level 8.9 8.5-10.1 MG/DL My Orders Orders - AMOR GÓMEZ MD Basic Metabolic Panel (12/26/21 10:00) Ed Iv/Invasive Line Start (12/26/21 10:00) Ondansetron Injection (Zofran Injectio (12/26/21 10:00) Lactated Ringers (Lr 1000 Ml Iv Solution (12/26/21 10:00) Ua Culture If Indicated (12/26/21 10:48) Cbc With Automated Diff (12/26/21 10:48) Ns Iv 1000 Ml (Sodium Chloride 0.9%) (12/26/21 11:00) Catheter(Urinary) Insert & Ass 03,15 (12/26/21 10:49) Lidocaine 2% (Urojet) (Xylocaine Urojet) (12/26/21 11:00) Medications Given in ED Vital Signs/I&O 12/26/21 09:50 Temp 36.6 Pulse 85 Resp 20 B/P (MAP) 127/89 (102) Pulse Ox 97 O2 Delivery Room Air Capillary Refill : Less Than 3 Seconds Blood Pressure Mean: 102 Progress Note : Time: 10:52 Progress Note Patient advised of need for admission due to increase in serum creatinine. Evaluation today initially included physical exam, basic metabolic panel and IV fluid resuscitation. Noted increased creatinine compared to baseline from 48 hours ago. Additional labs were ordered, CBC, urinalysis and placement of Wheeler catheter. Patient's vital signs are stable. Nausea is somewhat improved with Zofran. Meets criteria for inpatient IV fluid replacement with close monitoring of intake and output. Case was discussed with Dr. Gooden, patient's primary care physician. Departure Communication (Admissions) Time/Spoke to Admitting Phy: 10:[address] Gooden Impression Primary Impression: Acute kidney injury Additional Impression: Dehydration Disposition: ADMITTED INPATIENT Condition: Stable Admissions Decision to Admit Reason: Admit from ER (General) Decision to Admit/Date: Dec 26, 2021 Time/Decision to Admit Time: 10:52 Departure-Patient Inst. Referrals: VALERIA GOODEN MD (PCP/Family) Primary Care Physician AMOR GÓMEZ MD Dec 26, 2021 10:06
[2021-12-26 10:32] LABS: CALCIUM 8.9 MG/DL (8.5-10.1); CREATININE SERUM 3.67 MG/DL (0.60-1.30); POTASSIUM 3.1 MMOL/L (3.6-5.0)
[2021-12-26] MEDS ORDERED: NS IV 1000 ML 1,000 ML IV SCH (11:00)
[2021-12-26] MEDS ORDERED: LIDOCAINE UROJET 2% GEL 10 ML PKG TOP ONE (11:00)
[2021-12-26 11:31] LABS: BASOPHILS % (AUTO) 0 % (0-10); EOSINOPHILS % (AUTO) 0 % (0-10); HEMATOCRIT 34 % (35-52); HEMOGLOBIN 11.7 g/dL (11.5-16.0); LYMPHOCYTES # (AUTO) 1.5 10^3/uL (1.0-4.0); LYMPHOCYTES % (AUTO) 20 % (12-44); MEAN CORPUSCULAR HEMOGLOBIN 30 pg (25-34); MEAN CORPUSCULAR HGB CONC 34 g/dL (32-36); MEAN CORPUSCULAR VOLUME 88 fL (80-99); MEAN PLATELET VOLUME 10.2 fL (9.0-12.2); MONOCYTES # (AUTO) 0.4 10^3/uL (0.0-1.0); MONOCYTES % (AUTO) 5 % (0-12); NEUTROPHILS # (AUTO) 5.5 10^3/uL (1.8-7.8); NEUTROPHILS % (AUTO) 73 % (42-75); PLATELET COUNT 197 10^3/uL (130-400); WHITE BLOOD COUNT 7.5 10^3/uL (4.3-11.0)
[2021-12-26 12:22] LABS: BILIRUBIN,URINE NEGATIVE (NEGATIVE); CLARITY,URINE CLEAR; COLOR,URINE YELLOW; GLUCOSE, URINE (UA) NEGATIVE (NEGATIVE); KETONES,URINE NEGATIVE (NEGATIVE); LEUKOCYTE ESTERASE ,URINE NEGATIVE (NEGATIVE); NITRITE,URINE NEGATIVE (NEGATIVE); PROTEIN,URINE TRACE (NEGATIVE)
[2021-12-26 12:34] LABS: BACTERIA,URINE NEGATIVE /HPF; RBC,URINE 0-2 /HPF; SQUAMOUS EPITHELIAL CELL,UR RARE /HPF
[2021-12-26] MEDS ORDERED: ONDANSETRON 4 MG/2 ML (SDV) Z0FRAN IV PRN (13:30)
[2021-12-26] MEDS: NS IV 1000 ML 1,000 ML IV SCH (13:34)
[2021-12-26 14:02] VITALS: BP 150/91
[2021-12-26] MEDS ORDERED: RT-ALBUTEROL SULF 2.5 MG/3 ML PRE-MIX VIAL INH PRN (14:15)
[2021-12-26] MEDS ORDERED: CEFU250T80 PO (15:38)
[2021-12-26] MEDS ORDERED: ASPI-1238 PO (15:38)
[2021-12-26] MEDS ORDERED: AMLO-251 PO (15:38)
[2021-12-26] MEDS ORDERED: ACHD5005 PO (15:38)
[2021-12-26] MEDS ORDERED: VALA10007 PO (15:38)
[2021-12-26] MEDS ORDERED: LOTE5DRO8 OP (15:38)
[2021-12-26 15:40] VITALS: BP 145/82
[2021-12-26] MEDS ORDERED: FLU QUAD HIGH DOSE 240 MCG/0.7 ML 2022-23 (FLUZONE) IM ONE (18:45)
--- NOTE | 2021-12-26 19:07 | History & Physicial ---
History of Present Illness History of Present Illness Reason for visit/HPI Placido rogers is an 81-year-old female who has a history of ulcerative colitis as well as hypertension who presents to the emergency department during the morning of December 26, 2021 with not feeling well at all. Apparently she has had weakness as well as nausea. She was treated 5 days ago for shingles to the left side of her face. She had been taking Valtrex 1000 mg 3 times a day according to her who is present as well. Her reports to me they went to Dr. Luke yesterday and there was no ophthalmological involvement of the herpetic virus. She has also been very dizzy. Previously she had been with significant anemia with her ulcerative colitis and this was checked today. She has not been drinking fluids very well and it is noted in the ED that her lips are cracked. Date of Admission Dec 26, 2021 at 12:05 Date Seen by a Provider: Dec 26, 2021 Time Seen by a Provider: 16:40 I consulted on this patient on 12/26/21 19:01 Attending Physician Tay Gooden MD Admitting Physician Admitting Physician: Tay Gooden MD Attending Physician: Tay Gooden MD Consult Allergies and Home Medications Allergies Coded Allergies: Penicillins (Verified Allergy, Unknown, SWELLING, 12/26/21) mesalamine (Verified Adverse Reaction, Unknown, RASH, 12/26/21) Patient Home Medication List Home Medication List Reviewed: Yes Amlodipine Besylate (Amlodipine Besylate) 10 Mg Tablet, 10 MG PO DAILY, (Reported) Entered as Reported by: ALEJANDRA OSCAR on 12/26/211537 Last Action: Reviewed Aspirin (Aspirin EC) 81 Mg Tablet.dr, 81 MG PO DAILY, (Reported) Entered as Reported by: ALEJANDRA OSCAR on 12/26/211537 Last Action: Reviewed Cefuroxime Axetil (Cefuroxime) 250 Mg Tablet, 500 MG PO BID, (Reported) Entered as Reported by: ALEJANDRA OSCAR on 12/26/211537 Last Action: Reviewed Hydrocodone/Acetaminophen (Hydrocodone-Acetamin 5-325 mg) 5 Mg-325 Mg Tablet, 1 EA PO Q6H PRN for PAIN-MODERATE (5-7), (Reported) Entered as Reported by: ALEJANDRA OSCAR on 12/26/211537 Last Action: Reviewed Loteprednol Etabonate (Loteprednol Etabonate) 0.5 % Drops.susp, 1 DROP OP QID, (Reported) Entered as Reported by: ALEJANDRA OSCAR on 12/26/211537 Last Action: Reviewed Valacyclovir HCl (Valacyclovir) 1,000 Mg Tablet, 1,000 MG PO Q8H, (Reported) Entered as Reported by: ALEJANDRA OSCAR on 12/26/211537 Last Action: Reviewed Discontinued Medications Acetaminophen (Tylenol Extra Strength) 500 Mg Tablet, 1,000 MG PO Q6H PRN for PAIN, (Reported) Discontinued Reason: No Longer Taking Entered as Reported by: LESIA VELEZ on 11/02/151404 Last Action: Discontinued Biotin (Biotin) 5 Mg Capsule, 5 MG PO DAILY, (Reported) Discontinued Reason: No Longer Taking Entered as Reported by: LESIA VELEZ on 11/02/151414 Last Action: Discontinued Calcium/Magnesium/Zinc (Wcxyrvi-Hovjngryg-Czbj Tab) 1 Each Tablet, 1 TAB PO DAILY, (Reported) Discontinued Reason: No Longer Taking Entered as Reported by: LESIA VELEZ on 11/02/151414 Last Action: Discontinued Cefuroxime Axetil (Cefuroxime) 500 Mg Tablet, 500 MG PO BID Discontinued Reason: No Longer Taking Prescribed by: Job Lambert on 12/22/21 1442 Last Action: Discontinued Cyclosporine (Restasis) 1 Each Droperette, 1 DROP OU BID, (Reported) Discontinued Reason: No Longer Taking Entered as Reported by: LESIA VELEZ on 11/02/151404 Last Action: Discontinued Diltiazem HCl (Diltiazem 24Hr Cd) 180 Mg Cap.er.24h, 180 MG PO DAILY Discontinued Reason: No Longer Taking Prescribed by: TAY GOODEN on 11/03/15 0832 Last Action: Discontinued Diphenhydramine HCl (Benadryl) 25 Mg Capsule, 25 MG PO HS PRN for ALLERGIES, (Reported) Discontinued Reason: No Longer Taking Entered as Reported by: LESIA VELEZ on 11/02/151404 Last Action: Discontinued Hydrocodone Bit/Acetaminophen (HYDROcodone/APAP 5 MG/325 MG TAB) 1 Tab Tab, 1 TAB PO Q6H Discontinued Reason: No Longer Taking Prescribed by: KRISH COFFEY on 12/24/21 1025 Last Action: Discontinued Mesalamine (Canasa) 1,000 Mg Supp.rect, 1,000 MG RC HS, (Reported) Discontinued Reason: No Longer Taking Entered as Reported by: LESIA VELEZ on 11/02/15 1405 Last Action: Discontinued Multivit-Min/FA/Lycopene/Lut (Centrum Silver Tablet) 1 Each Tablet, 1 TAB PO DAILY, (Reported) Discontinued Reason: No Longer Taking Entered as Reported by: LESIA VELEZ on 11/02/15 1415 Last Action: Discontinued Valacyclovir HCl (Valacyclovir) 1,000 Mg Tablet, 1,000 MG PO Q8H Discontinued Reason: No Longer Taking Prescribed by: KRISH COFFEY on 12/24/21 1025 Last Action: Discontinued Vitamin B Complex (Vitamin B Complex) 1 Each Capsule, 1 CAP PO DAILY, (Reported) Discontinued Reason: No Longer Taking Entered as Reported by: LESIA VELEZ on 11/02/15 141 Last Action: Discontinued Past Ngwmfbl-Bsjasz-Qejepo Hx Patient Social History Marrital Status: Number of Children: 2 Employed/Student: unemployed, retired Former Smoker, Quit: Nov 02, 1995 Recent Hopitalizations: Yes Have you traveled recently?: No Alcohol Use?: Yes Pt feels they are or have been: No Immunizations Up To Date Tetanus Booster (TDap): More than 5yrs Pediatric: No Seasonal Allergies Seasonal Allergies: No Surgeries Yes Gallbladder Respiratory Currently Using CPAP: No Currently Using BIPAP: No Cardiovascular Hypertension Reproductive System Hx Reproductive Disorders: No Sexually Transmitted Disease: No HIV/AIDS: No Female Reproductive Disorders: Denies 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 1.0oz. 48.324968ks; 21.44 BMI Method:Stated General Appearance: Mild Distress Eyes: Bilateral Eye Normal Inspection (Except she is known to have slight swelling to the upper eyelid on the left) HEENT: Moist Mucous Membranes Neck: Full Range of Motion Respiratory: Lungs Clear Cardiovascular: Regular Rate, Rhythm, No Murmur Gastrointestinal: Soft Rectal: Deferred Back: Normal Inspection Extremity: Normal Capillary Refill Neurologic/Psychiatric: Alert, Oriented x3, Motor Weakness (Minimal to the upper extremities) Skin: Normal Color, Warm/Dry Assessment/Plan Assessment and Plan 1. Severe dehydration -IV fluids initiated in emergency department and continue on the floor -we will monitor her electrolytes and BUN/creatinine -she is placed on clear liquid diet 2. Acute renal failuresecondary to #1 -she has no history of previous renal injury -recheck BUN and creatinine in the morning 3. Shingles left side of face non-ophthalmological involvement -her dose of Valtrex was decreased to 500 mg daily due to the low glomerular filtration rate 4. History of ulcerative colitiscurrently stable Admission Diagnosis 1. Severe dehydration 2. Acute renal failuresecondary to #1 3. Shingles left side of face non-ophthalmological involvement 4. Ulcerative colitiscurrently stable Admission Status: Observation TAY GOODEN MD Dec 26, 2021 19:07
[2021-12-26 19:41] VITALS: BP 139/75
[2021-12-27] MEDS: NS IV 1000 ML 1,000 ML IV SCH ×3 (00:09→17:43)
[2021-12-27 00:23] VITALS: BP 132/83
[2021-12-27 04:13] VITALS: BP 144/87
[2021-12-27 06:12] LABS: CALCIUM 7.9 MG/DL (8.5-10.1); CREATININE SERUM 3.47 MG/DL (0.60-1.30); POTASSIUM 3.1 MMOL/L (3.6-5.0)
[2021-12-27 07:47] VITALS: BP 160/94
[2021-12-27] MEDS ORDERED: KCL 20 MEQ TAB (K-DUR) PO ONE (08:00)
--- NOTE | 2021-12-27 08:01 | Progress Note ---
Subjective Date Seen by a Provider: Dec 27, 2021 Time Seen by a Provider: 07:10 Subjective/Events-last exam Patient appetite is still fairly down. She is urinating with her IV fluids running at 100 cc/h. Her shingles on the left side of forehead still is somewhat irritating but not with significant pain Objective Exam Vital Signs Date Time Temp Pulse Resp B/P (MAP) Pulse Ox O2 Delivery O2 Flow Rate FiO2 12/27/21 07:47 36.9 82 18 160/94 (116) 93 Room Air 12/27/21 07:00 81 12/27/21 04:13 37.1 82 18 144/87 (106) 94 Room Air 12/27/21 01:00 80 12/27/21 00:23 37.2 84 18 132/83 (99) 95 Room Air 12/26/21 21:08 98 Room Air 0.00 12/26/21 20:27 98 Room Air 12/26/21 19:41 36.2 87 20 139/75 (96) 96 Room Air 12/26/21 19:00 84 12/26/21 15:43 79 12/26/21 15:40 36.0 97 18 145/82 (103) 97 Room Air 12/26/21 14:02 36.6 80 98 21 12/26/21 13:07 97 Room Air 12/26/21 13:04 80 18 150/91 98 Room Air 12/26/21 09:50 36.6 85 20 127/89 (102) 97 Room Air I & O 12/27/21 07:00 Intake Total 2140 ml Output Total 2800 ml Balance -660 ml Capillary Refill : Less Than 3 Seconds General Appearance: No Apparent Distress HEENT: Other Neck: Supple Respiratory: Lungs Clear Cardiovascular: Regular Rate, Rhythm Results Lab Laboratory Tests 12/26/21 10:02: White Blood Count 7.5, Red Blood Count 3.89, Hemoglobin 11.7, Hematocrit 34L, Mean Corpuscular Volume 88, Mean Corpuscular Hemoglobin 30, Mean Corpuscular Hemoglobin Concent 34, Red Cell Distribution Width 13.8, Platelet Count 197, Mean Platelet Volume 10.2, Immature Granulocyte % (Auto) 0, Neutrophils (%) (Auto) 73, Lymphocytes (%) (Auto) 20, Monocytes (%) (Auto) 5, Eosinophils (%) (Auto) 0, Basophils (%) (Auto) 0, Neutrophils # (Auto) 5.5, Lymphocytes # (Auto) 1.5, Monocytes # (Auto) 0.4, Eosinophils # (Auto) 0.0, Basophils # (Auto) 0.0, Immature Granulocyte # (Auto) 0.0, Sodium Level 133L, Potassium Level 3.1L, Chloride Level 99, Carbon Dioxide Level 20L, Anion Gap 14, Blood Urea Nitrogen 46H, Creatinine 3.67#H, Estimat Glomerular Filtration Rate 12, BUN/Creatinine Ratio 13, Glucose Level 129H, Calcium Level 8.9 12/26/21 12:15: Urine Color YELLOW, Urine Clarity CLEAR, Urine pH 6.0, Urine Specific [place] 1.010L, Urine Protein TRACEH, Urine Glucose (UA) NEGATIVE, Urine Ketones NEGATIVE, Urine Nitrite NEGATIVE, Urine Bilirubin NEGATIVE, Urine Urobilinogen 0.2, Urine Leukocyte Esterase NEGATIVE, Urine RBC (Auto) 1+H, Urine RBC 0-2, Urine WBC NONE, Urine Squamous Epithelial Cells RARE, Urine Crystals NONE, Urine Bacteria NEGATIVE, Urine Casts NONE, Urine Mucus NEGATIVE, Urine Culture Indicated NO 12/27/21 05:10: Sodium Level 140, Potassium Level 3.1L, Chloride Level 110#H, Carbon Dioxide Level 15L, Anion Gap 15H, Blood Urea Nitrogen 41H, Creatinine 3.47H, Estimat Glomerular Filtration Rate 13, BUN/Creatinine Ratio 12, Glucose Level 76, Calcium Level 7.9L Assessment/Plan Assessment/Plan Assess & Plan/Chief Complaint 1. Severe dehydration -IV fluids initiated in emergency department and continue on the floor -we will monitor her electrolytes and BUN/creatinine -she is placed on clear liquid diet 12/27 -We will continue IV fluids at 100 cc/h 2. Acute renal failuresecondary to #1 -she has no history of previous renal injury -recheck BUN and creatinine in the morning 12/27 -Her creatinine did not increase but decreased minimal to 3.4 -Check chemistries in the morning 3. Shingles left side of face non-ophthalmological involvement -her dose of Valtrex was decreased to 500 mg daily due to the low glomerular filtration rate 12/27 -We will continue with Valtrex but at a much lower dose 500 mg orally daily 4. History of ulcerative colitiscurrently stable Clinical Quality Measures Admission Status Admission Dx 1. Severe dehydration 2. Acute renal failuresecondary to #1 3. Shingles left side of face non-ophthalmological involvement 4. Ulcerative colitiscurrently stable VALERIA GOODEN MD Dec 27, 2021 08:01
[2021-12-27] MEDS: amLODIPine 10 MG (NORVASC) TAB PO SCH (08:24)
[2021-12-27] MEDS ORDERED: VALACYCLOVIR 500 MG TAB (VALTREX) PO SCH (09:00)
[2021-12-27 11:57] VITALS: BP 136/82
[2021-12-27 15:30] VITALS: BP 150/90
[2021-12-27 19:27] VITALS: BP 140/85
[2021-12-28] VITALS: BP 161/82
[2021-12-28 04:12] VITALS: BP 132/88
[2021-12-28] MEDS: NS IV 1000 ML 1,000 ML IV SCH (04:56)
[2021-12-28 06:53] LABS: BASOPHILS % (AUTO) 0 % (0-10); EOSINOPHILS % (AUTO) 1 % (0-10); HEMATOCRIT 32 % (35-52); HEMOGLOBIN 10.6 g/dL (11.5-16.0); LYMPHOCYTES # (AUTO) 1.3 10^3/uL (1.0-4.0); LYMPHOCYTES % (AUTO) 23 % (12-44); MEAN CORPUSCULAR HEMOGLOBIN 30 pg (25-34); MEAN CORPUSCULAR HGB CONC 33 g/dL (32-36); MEAN CORPUSCULAR VOLUME 89 fL (80-99); MEAN PLATELET VOLUME 9.7 fL (9.0-12.2); MONOCYTES # (AUTO) 0.4 10^3/uL (0.0-1.0); MONOCYTES % (AUTO) 7 % (0-12); NEUTROPHILS # (AUTO) 3.9 10^3/uL (1.8-7.8); NEUTROPHILS % (AUTO) 68 % (42-75); PLATELET COUNT 205 10^3/uL (130-400); WHITE BLOOD COUNT 5.6 10^3/uL (4.3-11.0)
[2021-12-28 07:06] LABS: ALBUMIN 3.2 GM/DL (3.2-4.5); BILIRUBIN,TOTAL 0.5 MG/DL (0.1-1.0); CALCIUM 8.3 MG/DL (8.5-10.1); CREATININE SERUM 2.14 MG/DL (0.60-1.30); POTASSIUM 3.3 MMOL/L (3.6-5.0); TOTAL PROTEIN 6.7 GM/DL (6.4-8.2)
[2021-12-28 07:32] VITALS: BP 157/87
[2021-12-28] MEDS: amLODIPine 10 MG (NORVASC) TAB PO SCH (08:36)
[2021-12-28] MEDS ORDERED: PATIENT MAY USE OWN MED,SINGLE MED PO SCH ×2 (08:45→14:15)
[2021-12-28] MEDS ORDERED: LOTEPREDNOL ETABONATE 0.5% OS SCH (09:00)
[2021-12-28] MEDS ORDERED: VALA500T4 PO (09:11)
--- NOTE | 2021-12-28 11:02 | Discharge Summary ---
Diagnosis/Chief Complaint Date of Admission Dec 27, 2021 at 11:31 Date of Discharge Primary Care Valeria Gooden MD Discharge Summary Discharge Physical Exam Allergies: Coded Allergies: Penicillins (Verified Allergy, Unknown, SWELLING, 12/26/21) mesalamine (Verified Adverse Reaction, Unknown, RASH, 12/26/21) Vitals & I&Os Vital Signs Date Time Temp Pulse Resp B/P (MAP) Pulse Ox O2 Delivery O2 Flow Rate FiO2 12/28/21 12:43 84 12/28/21 11:12 36.9 18 167/94 (118) 95 Room Air 12/27/21 19:27 0.00 0.00 12/26/21 14:02 21 General Appearance: No Apparent Distress HEENT: Other (3 to 4 mm multiple areas of scabbing on erythematous background left forehead extending into scalp. No ocular injection no tearing no matter) Respiratory: Chest Non Tender, Lungs Clear, Normal Breath Sounds, No Accessory Muscle Use, No Respiratory Distress Cardiovascular: Regular Rate, Rhythm, No Edema, No Gallop, No JVD, No Murmur, Normal Peripheral Pulses Gastrointestinal: Normal Bowel Sounds, No Organomegaly, No Pulsatile Mass, Non Tender, Soft Hospital Course Was the Problem List Reviewed?: Yes Placido rogers is an 81-year-old female who has a history of ulcerative colitis as well as hypertension who presents to the emergency department during the morning of December 26, 2021 with not feeling well at all. Apparently she has had weakness as well as nausea. She was treated 5 days ago for shingles to the left side of her face. She had been taking Valtrex 1000 mg 3 times a day according to her who is present as well. Her reports to me they went to Dr. Luke yesterday and there was no ophthalmological involvement of the herpetic virus. She has also been very dizzy. Previously she had been with significant anemia with her ulcerative colitis and this was checked today. She has not been drinking fluids very well and it is noted in the ED that her lips are cracked. Patient was admitted with reduction in Valtrex and initiation of IV fluids. The day of her discharge her creatinine had come down from 3 6-2 5 she was tolerating solids and had a full breakfast without nausea and able to ambulate with standby assistance. She reports minimal left forehead discomfort. According to Dr. Andrews there is no evidence for ocular involvement. Suspect dehydration is the major culprit here from left supraorbital herpes zoster. Doubt that Valtrex was a major contributor but considering her renal disease we will decrease her dose to 500 mg twice daily for another 5 days and she was advised to follow-up with Dr. Gooden in 1 to 2 weeks. Labs (last 24 hrs) Patient resulted labs reviewed. Pending Labs Discussion & Recommendations Discharge Planning: >30 minutes discharge planning Discharge Home Medications: Active Scripts Active Valtrex (Valacyclovir HCl) 500 Mg Tablet 500 Mg PO BID 5 Days Reported Aspirin EC (Aspirin) 81 Mg Tablet. 81 Mg PO DAILY Amlodipine Besylate 10 Mg Tablet 10 Mg PO DAILY Hydrocodone-Acetamin 5-325 mg (Hydrocodone/Acetaminophen) 5 Mg-325 Mg Tablet 1 Ea PO Q6H PRN Loteprednol Etabonate 0.5 % Drops.susp 1 Drop OP QID Instructions to patient/family Please see electronic discharge instructions given to patient. Copy Copies To 2: VALERIA GOODEN MD, MARK D MD Dec 28, 2021 11:02
[2021-12-28 11:12] VITALS: BP 167/94
[2021-12-29] MEDS ORDERED: VALACYCLOVIR 500 MG TAB (VALTREX) PO SCH (09:00)
== END 2021-12-28 14:10 | disposition home or self-care (01) | DRG 683 ==
LOC: EDUNIT# 09:42 → ER 09:44 → 4TH 12:05 → UNDOADMOB 12:05 → 4TH 13:04 → OBSVTOIN 12-27 11:31 → INTOOBSV 12-27 11:31 → UNDODISIN 12-28 14:10
PROVIDERS: ADMIT Family Medicine; ATTEND Internal Medicine
DX: N17.9 Acute kidney failure, unspecified (principal); K51.90 Ulcerative colitis, unspecified, without complications; E86.0 Dehydration; B02.9 Zoster without complications; I10 Essential (primary) hypertension; M06.9 Rheumatoid arthritis, unspecified; H54.3 Unqualified visual loss, both eyes; Z79.82 Long term (current) use of aspirin; Z88.0 Allergy status to penicillin; Z88.8 Allergy status to other drugs, medicaments and biological substances
CPT/HCPCS: 36415; 51702; 80048; 80053; 81000; 85025; G0378